=== PATIENT | male | born 1955 | race Caucasian/White ===

== ENCOUNTER 2018-09-01 05:55 | Day surgery (SDC) | payer OTHER ==
[~2018-09-01 05:55] MED LIST: ASA81 MG PO; ATENOLOL50 MG PO; ATORVASTATIN CA40 MG PO; COZAAR50 MG PO; FAMOTIDINE40 MG PO; NITROGLYCERIN0.4 MG SL
[2018-09-01] MEDS ORDERED: PERCOCET 5-3251 EACH PO (09:17)
[2018-09-01] MEDS ORDERED: NEURONTIN300 MG PO (09:28)
[2018-09-01] MEDS ORDERED: RECTICARE30 GM TOP (09:29)
== END 2018-09-01 16:59 | disposition home or self-care (01) ==
LOC: CIR.AMB
DX: K64.8 Other hemorrhoids (principal); K64.4 Residual hemorrhoidal skin tags